=== PATIENT | female | born 1940 | race Caucasian/White ===

== ENCOUNTER → 2016-08-21 | Outpatient (CLI) | payer MEDICARE ==
[~2016-08-21] MED LIST: ASPIRIN81 MG PO; ATORVASTATIN CA10 MG PO; CENTRUM SILVER PO; ESOMEPRAZOLE MA40 MG PO; FENOFIBRATE145 MG PO; FISH OIL 1,2001 CAP PO; FISH OIL500 M1 PO; GLUCOPHAGE500 MG PO; HYDROCODON-ACE1 EAC7 PO; JANUVIA50 MG PO; KEFLEX500 MG PO; LO-DOSE ASPIRIN81 M1 PO; METFORMIN HCL500 M1 PO; NAPROSYN500 MG PO; NAPROXEN PO; NEXIUM20 MG PO
--- NOTE | ~2016-08-21 | EKG ---
PATIENT: YELENA SCOTT UNIT #: [id number] Ventricular Rate: 89 BPM Atrial Rate: 89 BPM P-R Interval: 160 ms QRS Duration: 82 ms Q-T Interval: 338 ms QTC Calculation(Bezet): 411 ms P [place]: 41 degrees Calculated R [place]: -71 degrees Calculated T [place]: 45 degrees Diagnosis Line: Normal sinus rhythm Diagnosis Line: Left axis deviation Diagnosis Line: Left anterior fascicular block Diagnosis Line: Low voltage QRS Diagnosis Line: Abnormal ECG Diagnosis Line: When compared with ECG of 19-DEC-2013 12:00, Diagnosis Line: No significant change was found Diagnosis Line: Confirmed by PAIGE BOWERS MD ([id number]) on Diagnosis Line: 08/22/2016 11:49:24 AM INTERPRETING MD: PINKY
[2016-08-21 12:45] LABS: HEMATOCRIT 36.1 % (35.0-45.0); HEMOGLOBIN 11.9 gm/dL (12.0-16.0); MEAN CELL VOLUME 91.1 FL (83-96); MEAN CORPUSCULAR HEMOGLOBIN 29.9 PG (28-34); MEAN CORPUSCULAR HGB CONC 32.8 g/dL (30-36); MEAN PLATELET VOLUME 7.6 FL (6.5-11.5); RED BLOOD COUNT 3.96 X10e (3.90-5.30); RED CELL DISTRIBUTION WIDTH 16.1 % (11.0-15.5); WHITE BLOOD COUNT 8.4 X10e3 (4.0-10.5)
[2016-08-21 13:16] LABS: BLOOD UREA NITROGEN 9 mg/dL (9-23); BUN/CREATININE RATIO 11.25; CALCIUM SERUM 9.1 mg/dL (8.4-10.2); CARBON DIOXIDE 27 mmol/L (22-31); CHLORIDE 106 mmol/L (100-111); CREATININE SERUM 0.8 mg/dL (0.6-1.4); GLOM FILT RATE Estimated ABOVE60 mL/min (>60); GLUCOSE FASTING 82 mg/dL (70-110); POTASSIUM 4.8 mmol/L (3.5-5.1); SODIUM 138 mmol/L (135-145)
== END | disposition home or self-care (01) ==
LOC: CEKG 11:53
PROVIDERS: Urology
DX: N39.46 Mixed incontinence (principal)
CPT/HCPCS: 36415; 80048; 85027; 93005

== ENCOUNTER 2016-09-10 13:58 | Emergency (ER) | payer MEDICARE ==
[~2016-09-10 13:58] MED LIST changes: -ASPIRIN81 MG PO; -ATORVASTATIN CA10 MG PO; -ESOMEPRAZOLE MA40 MG PO; -FISH OIL 1,2001 CAP PO; -HYDROCODON-ACE1 EAC7 PO; -KEFLEX500 MG PO; -METFORMIN HCL500 M1 PO; -NAPROXEN PO
[2016-09-10 14:21] LABS: URINE SOURCE CLEAN CATCH
[2016-09-10 14:26] LABS: URINE APPEARANCE CLOUDY; URINE BILIRUBIN NEG (NEG); URINE BLOOD 2+ (NEG); URINE COLOR YELLOW; URINE GLUCOSE NEG (NEG); URINE KETONE NEG (NEG); URINE LEUKOCYTE ESTERASE 3+ (NEG); URINE NITRATE POS (NEG); URINE PROTEIN NEG (NEG); URINE SPECIFIC GRAVITY 1.016 (1.003-1.035); URINE UROBILINOGEN 0.2 MG/DL (NEG)
[2016-09-10 14:27] LABS: CULTURE INDICATED? YES; URBCS1 AUWI 25-50 /[HPF] (0-2); URINE BACTERIA AUWI 2+ (NEGATIVE); URINE SQUAMOUS EPITHELIAL CELL OCC /[HPF]; UWBCS1 AUWI 200-300 (0-5)
[2016-09-27] MEDS ORDERED: ESOMEPRAZOLE MA40 MG PO (16:39)
[2016-09-27] MEDS ORDERED: METFORMIN HCL500 M1 PO (16:39)
[2016-09-27] MEDS ORDERED: NAPROXEN PO (16:40)
[2016-09-27] MEDS ORDERED: ATORVASTATIN CA10 MG PO (16:41)
[2016-09-27] MEDS ORDERED: ASPIRIN81 MG PO (16:42)
[2016-09-27] MEDS ORDERED: FISH OIL 1,2001 CAP PO (16:42)
[2016-09-29] MEDS ORDERED: KEFLEX500 MG PO (15:46)
[2016-09-29] MEDS ORDERED: HYDROCODON-ACE1 EAC7 PO (15:48)
== END 2016-09-10 15:05 | disposition home or self-care (01) ==
LOC: CED 13:58
PROVIDERS: Emergency Medicine
DX: N39.0 Urinary tract infection, site not specified (principal); Z88.2 Allergy status to sulfonamides; Z88.8 Allergy status to other drugs, medicaments and biological substances
CPT/HCPCS: 81003; 87086; 87088; 87186; 99282

== ENCOUNTER → 2016-09-25 | Outpatient (CLI) | payer MEDICARE ==
[~2016-09-25] MED LIST changes: +ASPIRIN81 MG PO; +ATORVASTATIN CA10 MG PO; +ESOMEPRAZOLE MA40 MG PO; +FISH OIL 1,2001 CAP PO; +HYDROCODON-ACE1 EAC7 PO; +KEFLEX500 MG PO; +METFORMIN HCL500 M1 PO; +NAPROXEN PO
[2016-09-25 15:42] LABS: CALCIUM SERUM 9.3 mg/dL (8.4-10.2); CREATININE SERUM 1.4 mg/dL (0.6-1.4); GLOM FILT RATE Estimated 36.1 mL/min (>60); POTASSIUM 5.3 mmol/L (3.5-5.1)
== END | disposition home or self-care (01) ==
LOC: CLAB 14:41
PROVIDERS: Internal Medicine
DX: E87.5 Hyperkalemia (principal)
CPT/HCPCS: 36415; 80048

== ENCOUNTER 2016-11-30 15:13 | Emergency (ER) | payer MEDICARE, OTHER ==
[2016-11-30 15:36] LABS: URINE SOURCE CLEAN CATCH
[2016-11-30 15:41] LABS: URINE APPEARANCE TURBID; URINE BILIRUBIN NEG (NEG); URINE BLOOD 2+ (NEG); URINE COLOR YELLOW; URINE GLUCOSE NEG (NEG); URINE KETONE NEG (NEG); URINE LEUKOCYTE ESTERASE 3+ (NEG); URINE NITRATE POS (NEG); URINE PH 5.5 (5-8); URINE PROTEIN TRACE (NEG); URINE SPECIFIC GRAVITY 1.009 (1.003-1.035); URINE UROBILINOGEN 0.2 MG/DL (NEG)
[2016-11-30 15:44] LABS: CULTURE INDICATED? YES; U HYALINE CASTS AUWI 0-2 /[LPF]; URINE BACTERIA AUWI 4+ (NEGATIVE); URINE SQUAMOUS EPITHELIAL CELL FEW /[HPF]; UWBCS1 AUWI INNUM (0-5)
== END 2016-11-30 16:40 | disposition home or self-care (01) ==
LOC: CFTX 15:13 → CED 15:13 → CFTX 16:14
DX: N30.00 Acute cystitis without hematuria (principal); E11.9 Type 2 diabetes mellitus without complications; K21.9 Gastro-esophageal reflux disease without esophagitis; Z90.49 Acquired absence of other specified parts of digestive tract; Z87.891 Personal history of nicotine dependence; Z88.2 Allergy status to sulfonamides; Z88.1 Allergy status to other antibiotic agents; Z79.899 Other long term (current) drug therapy; Z79.82 Long term (current) use of aspirin
CPT/HCPCS: 81003; 87086; 87088; 87186; 96372; 99283; J0696

== ENCOUNTER 2016-12-24 13:30 | Emergency (ER) | payer OTHER, MEDICARE ==
[2016-12-24 14:32] LABS: URINE SOURCE CLEAN CATCH
[2016-12-24 14:47] LABS: URINE APPEARANCE CLEAR; URINE BILIRUBIN NEG (NEG); URINE BLOOD NEG (NEG); URINE COLOR YELLOW; URINE GLUCOSE NEG (NEG); URINE KETONE NEG (NEG); URINE LEUKOCYTE ESTERASE 3+ (NEG); URINE NITRATE NEG (NEG); URINE PH 6.5 (5-8); URINE PROTEIN NEG (NEG); URINE SPECIFIC GRAVITY 1.009 (1.003-1.035); URINE UROBILINOGEN 0.2 MG/DL (NEG)
[2016-12-24 14:50] LABS: CULTURE INDICATED? YES; URINE BACTERIA AUWI NEG (NEGATIVE); URINE SQUAMOUS EPITHELIAL CELL MOD /[HPF]; UWBCS1 AUWI 50-100 (0-5)
[2016-12-24 15:02] LABS: URINE TRANSITIONAL EPI CELLS MANY /[HPF]
== END 2016-12-24 17:22 | disposition home or self-care (01) ==
LOC: CED 13:30
DX: N30.00 Acute cystitis without hematuria (principal); Z88.2 Allergy status to sulfonamides; Z88.8 Allergy status to other drugs, medicaments and biological substances; Z79.899 Other long term (current) drug therapy; Z79.82 Long term (current) use of aspirin
CPT/HCPCS: 81003; 87086; 99283

== ENCOUNTER → 2017-01-05 | Outpatient (CLI) | payer MEDICARE ==
--- NOTE | ~2017-01-05 | EKG ---
PATIENT: YELENA SCOTT UNIT #: [id number] Ventricular Rate: 83 BPM Atrial Rate: 83 BPM P-R Interval: 164 ms QRS Duration: 82 ms Q-T Interval: 354 ms QTC Calculation(Bezet): 415 ms P [place]: 55 degrees Calculated R [place]: -50 degrees Calculated T [place]: 53 degrees Diagnosis Line: Normal sinus rhythm Diagnosis Line: Left axis deviation Diagnosis Line: Inferior infarct (cited on or before 27-SEP-2016) Diagnosis Line: Abnormal ECG Diagnosis Line: When compared with ECG of 27-SEP-2016 16:32, Diagnosis Line: No significant change was found Diagnosis Line: Confirmed by OBDULIA NARVAEZ MD ([id number]) on 01/05/2017 Diagnosis Line: 5:43:57 PM INTERPRETING MD: BRICE BERG
[2017-01-05 11:51] LABS: HEMATOCRIT 33.8 % (35.0-45.0); HEMOGLOBIN 10.7 gm/dL (12.0-16.0); MEAN CELL VOLUME 94.2 FL (83-96); MEAN CORPUSCULAR HEMOGLOBIN 29.7 PG (28-34); MEAN CORPUSCULAR HGB CONC 31.6 g/dL (30-36); MEAN PLATELET VOLUME 7.3 FL (6.5-11.5); RED BLOOD COUNT 3.59 X10e (3.90-5.30); RED CELL DISTRIBUTION WIDTH 15.3 % (11.0-15.5); WHITE BLOOD COUNT 8.8 X10e3 (4.0-10.5)
[2017-01-05 12:16] LABS: BUN/CREATININE RATIO 18.75; CALCIUM SERUM 9.3 mg/dL (8.4-10.2); CREATININE SERUM 0.8 mg/dL (0.6-1.4); GLOM FILT RATE Estimated 71.2 mL/min (>60); POTASSIUM 4.7 mmol/L (3.5-5.1)
== END | disposition home or self-care (01) ==
LOC: CLAB 11:05
PROVIDERS: Urology
DX: Z01.818 Encounter for other preprocedural examination (principal); N39.41 Urge incontinence
CPT/HCPCS: 36415; 80048; 85027; 93005